=== PATIENT | male | born 1950 | race Caucasian/White ===

== ENCOUNTER → 2017-03-17 | Outpatient (CLI) | payer MEDICARE ==
--- NOTE | 2017-03-18 15:02 | US ---
EXAM DESCRIPTION: Thyroid CLINICAL HISTORY: 66 years Male, HYPER THYROID COMPARISON: None. FINDINGS: The right thyroid lobe measures 3.2 cm in length. It is of fairly homogenous internal echogenicity without nodule. The thyroid isthmus is not thickened. The left thyroid lobe measures 4.1 cm in length and is also of fairly homogenous internal echogenicity. It contains a 2 mm cystic nodule of doubtful clinical significance but is otherwise unremarkable. IMPRESSION: Negative exam. Electronically signed by: Kei Chen MD 03/18/2017 3:01 PM CDT Workstation: [id number]
== END ==
LOC: US 14:42
PROVIDERS: ATTEND Family Medicine
DX: E05.90 Thyrotoxicosis, unspecified without thyrotoxic crisis or storm (principal)

== ENCOUNTER → 2017-06-07 | Outpatient (CLI) | payer MEDICARE ==
--- NOTE | 2017-06-07 15:51 | RAD ---
EXAM DESCRIPTION: Barium Swallow CLINICAL HISTORY: SWALLOWING ISSUE COMPARISON: None TECHNIQUE: The patient swallowed barium pill with water. The patient swallowed heavy density barium under fluoroscopic visualization. The images were obtained with the patient standing and horizontal. Patient drank medium density barium through a straw in the semi-prone position. 12 fluoroscopic cine loop images. Seven static fluoroscopic images. Total fluoroscopy time was 1.6. DAP 17.23 mGy. FINDINGS: No alesha laryngeal aspiration was noted. Patient did not cough after swallowing. Multiple swallows were needed to clear the posterior oropharynx. The upper esophagus deviates to the left of midline. Limited primary peristaltic wave with tertiary and secondary contractions in the middle and distal esophagus. This delayed emptying of the upper and mid esophagus. Progression on the left lateral posterior esophagus from the aortic arch. Minimal gastroesophageal reflux. The esophagus remains slightly dilated at the level of the tracheal pedro luis with questionable ulceration or diverticula. This is only noted when there is contrast, not air in this segment. The caliber is more normal distally. IMPRESSION: 1. Delayed emptying of the oropharynx. No alesha laryngeal aspiration. 2. Delayed emptying of the esophagus. Diminished contraction with minimal dilation noted in a segment of the esophagus, at the level of, and distal to the tracheal pedro luis. Cannot exclude ulceration or diverticula. 3. Decreased primary peristaltic wave in the esophagus with secondary and tertiary contractions. Electronically signed by: Gage Flores MD 06/07/2017 3:50 PM CDT Workstation: [id number]
== END | disposition home or self-care (01) ==
LOC: RAD 06-06 12:59
PROVIDERS: ATTEND Family Medicine
DX: R13.10 Dysphagia, unspecified (principal)